=== PATIENT | male | born 1965 | race Caucasian/White ===

== ENCOUNTER → 2017-01-05 | Outpatient (CLI) | payer OTHER ==
--- NOTE | 2017-01-05 10:32 | RADIOLOGY REPORT PS360 ---
[id number] VIEWS HISTORY: Right-sided rib pain CHEST PAIN, ORDERING PHYSICIAN: Jacob Canela MD PATIENT AGE: 51 years COMPARISON: None FINDINGS: No fracture or dislocation. No lytic or blastic change. IMPRESSION: Negative right ribs
--- NOTE | 2017-01-05 10:34 | RADIOLOGY REPORT PS360 ---
CHEST(2 VIEWS-NOT PORTABLE) HISTORY: CHEST PAIN, ORDERING PHYSICIAN: Jacob Canela MD PATIENT AGE: 51 years COMPARISON: None available FINDINGS: The cardiomediastinal silhouette and pulmonary vascularity are within normal limits. There is increased density over the anterior aspect of the heart on the lateral view is not readily apparent on the frontal view and may only be related to summation artifact. Small area of infiltrate or developing nodule is also a consideration. Follow-up recommended in 2-4 weeks. If this persists, then CT may be needed for evaluation. IMPRESSION: 1. Indeterminant 2 cm opacity overlies the anterior aspect of the heart and could be due to parenchymal pathology or summation artifact. Recommend follow-up. 2. Otherwise negative
== END ==
LOC: RAD 09:57
DX: R07.81 Pleurodynia (principal); M54.9 Dorsalgia, unspecified

== ENCOUNTER → 2017-01-21 | Outpatient (CLI) | payer OTHER ==
--- NOTE | 2017-01-21 17:43 | RADIOLOGY REPORT PS360 ---
CHEST(2 VIEWS-NOT PORTABLE) HISTORY: CHEST PAIN ORDERING PHYSICIAN: Jacob Canela MD PATIENT AGE: 51 years COMPARISON: 01/05/2017 FINDINGS: The cardiomediastinal silhouette and pulmonary vascularity are within normal limits. The lungs are clear without infiltrates, suspicious nodules, or pleural effusions. No acute bony abnormalities. Previously noted opacity over the anterior aspect of the heart is less apparent probably related to summation artifact. IMPRESSION: No acute finding
== END ==
LOC: RAD 16:55
DX: R07.9 Chest pain, unspecified (principal)